=== PATIENT | male | born 1950 | race Two or more races ===

== ENCOUNTER 2023-11-13 06:57 | Inpatient (IN) | payer OTHER ==
[~2023-11-13] VITALS: Ht 172.7 cm; Wt 106.3 kg
[~2023-11-13 06:57] MED LIST: METO1TAB77 PO
[2023-11-13] MEDS: VANCOMYCIN HCL 1000 MG VL ONE ×2 (07:11→08:39)
[2023-11-13] MEDS: BUPIVACAINE 0.25% INJ 50ML VIAL ONE (07:12)
[2023-11-13] MEDS: TRANEXAMIC ACID 20 ML ONE (07:12)
[2023-11-13] MEDS ORDERED: LIDOCAINE 1% INJ PF 5ML AMP ONE (07:16)
[2023-11-13] MEDS ORDERED: DexAMETHasone SOD PHOS 10MG/1ML VIAL INJ ONE (07:16)
[2023-11-13] MEDS ORDERED: KETOROLAC TROMETH 30 MG/ML 1ML VIAL ONE (07:16)
[2023-11-13] MEDS ORDERED: MORPHINE SULF PF 5 MG/10 ML VIAL ONE (07:16)
[2023-11-13] MEDS ORDERED: ONDANSETRON HCL 4 MG/2 ML VIAL ONE (07:16)
[2023-11-13] MEDS ORDERED: KETAMINE 50mg/ML 1ml syringe ONE (07:17)
[2023-11-13] MEDS ORDERED: EPINEPHrine HCL 1 MG/1 ML AMP ONE (07:17)
[2023-11-13] MEDS ORDERED: PROPOFOL 10 MG/ML 20 ML IV ONE ×2 (07:17→09:18)
[2023-11-13] MEDS ORDERED: GLYCOPYRROLATE 0.2 MG/ML 1ML VIAL ONE (07:17)
[2023-11-13] MEDS: ceFAZolin 2 GM/D5W50ml 50 ML IV ONE ×2 (07:20→07:50)
[2023-11-13] MEDS: CEFEPIME 1GM/ 50ML 50 ML IV ONE (07:30)
[2023-11-13] MEDS: CELECOXIB 100 MG CAP PO ONE (07:30)
[2023-11-13] MEDS: GABAPENTIN 300 MG CAP PO ONE (07:30)
[2023-11-13] MEDS: ACETAMINOPHEN IV 1000 MG/100ML (10MG/ML) IV ONE (07:30)
[2023-11-13] MEDS ORDERED: SODIUM CHLORIDE LOCK 10 ML ONE (08:27)
[2023-11-13] MEDS: MORPHINE SULF PF 5 MG/10 ML VIAL IV ONE (08:49)
[2023-11-13] MEDS: KETOROLAC TROMETH 30 MG/ML 1ML VIAL ONE (08:49)
[2023-11-13] MEDS ORDERED: ePHEDrine SULFATE 50 MG/ML AMP ONE (09:17)
[2023-11-13] MEDS ORDERED: ONDANSETRON HCL 4 MG/2 ML VIAL IV PRN ×2 (09:45→10:15)
[2023-11-13] MEDS ORDERED: NITROGLYCERIN 0.4 MG SL TAB SL PRN (09:45)
[2023-11-13] MEDS ORDERED: MORPHINE SULFATE INJ 2 MG/ml SYRG IV PRN (09:45)
[2023-11-13 09:57] VITALS: PULSE 77; RESP 17; O2SAT 99
[2023-11-13] MEDS ORDERED: CEFEPIME 1GM/ 50ML 50 ML IV SCH (10:00)
[2023-11-13] MEDS: METOPROLOL TARTRATE 50 MG TAB PO SCH (10:00)
[2023-11-13] MEDS: oxyCODONE ER 10 MG TAB PO SCH (10:00)
[2023-11-13] MEDS ORDERED: LABETALOL HCL 5 MG/ML 4ML SYRINGE IV PRN (10:15)
[2023-11-13] MEDS ORDERED: HYDROmorphone HCL 2 MG/ML VL/or syr IV PRN (10:15)
[2023-11-13] MEDS ORDERED: oxyCODONE HCL 5MG TAB PO PRN (10:15)
[2023-11-13] MEDS ORDERED: ePHEDrine SULFATE 50 MG/ML AMP IV PRN (10:15)
[2023-11-13] MEDS ORDERED: FLUMAZENIL 0.1 MG/ML INJ 10ML MDV IV PRN (10:15)
[2023-11-13] MEDS ORDERED: NALOXONE HCL 0.4 MG/ML VIAL IV PRN (10:15)
[2023-11-13] MEDS ORDERED: fentaNYL CITRATE 100 MCG/2 ML VL IV PRN (10:15)
[2023-11-13] MEDS ORDERED: hydrALAZINE HCL 20 MG/ML VL IV PRN (10:15)
[2023-11-13 14:15] VITALS: BP 145/78; PULSE 94; RESP 20; TEMP 98.2; O2SAT 96
[2023-11-13] MEDS: ENOXAPARIN SOD 40 MG/0.4 ML SYRINGE SC SCH (15:14)
[2023-11-13] MEDS: DOCUSATE SOD 100 MG CAP PO SCH (15:14)
[2023-11-13] MEDS: ceFAZolin 1GM/50ML 50 ML IV SCH ×2 (15:15→21:17)
[2023-11-13] MEDS: LACTATED RINGER'S 1,000 ML IV SCH (15:32)
[2023-11-13 16:54] VITALS: BP 141/76; PULSE 96; RESP 20; TEMP 98.2; O2SAT 96
[2023-11-13 20:00] VITALS: PULSE 89; PULSE 93; RESP 19; O2SAT 96
[2023-11-13] MEDS: HYDROmorphone HCL 2 MG/ML VL/or syr IV PRN (20:32)
[2023-11-13 21:00] VITALS: BP 144/70; PULSE 93; RESP 19; TEMP 97; O2SAT 96
[2023-11-14] VITALS (8 sets, daily range): BP systolic 103–154; BP diastolic 56–78; PULSE 62–81; RESP 15–20; TEMP 97.4–98.4; O2SAT 85–97
[2023-11-14 07:13] LABS: Hematocrit 43.6 % (41.0-53.0); Hemoglobin 15.3 g/dL (13.5-17.5)
[2023-11-14 07:27] LABS: Alanine Aminotransferase 22 U/L (7-40); Alkaline Phosphatase 77 U/L (46-116); Anion Gap 8 (5-15); BUN/Creatinine Ratio 18.1 (10.0-20.0); Blood Urea Nitrogen 17 mg/dL (9-23); Calcium 9.3 mg/dL (8.5-10.1); Carbon Dioxide 23 mmol/L (20-30); Chloride 105 mmol/L (98-107); Glucose 131 mg/dL (74-106); Potassium 4.2 mmol/L (3.5-5.1); Sodium 136 mmol/L (136-145)
[2023-11-14 07:28] LABS: Albumin 3.6 g/dL (3.2-4.8)
[2023-11-14 07:29] LABS: Aspartate Aminotransferase 20 U/L (13-40); Bilirubin, Total 0.5 mg/dL (0.2-1.0)
[2023-11-14] MEDS: CEFEPIME 1GM/ 50ML 50 ML IV SCH (08:52)
[2023-11-14] MEDS: OXYCODONE W/ ACETAMINOPHEN 5/325MG TABLET PO PRN (17:08)
[2023-11-15 01:00] VITALS: BP 104/62; PULSE 68; RESP 16; TEMP 97.5; O2SAT 92
[2023-11-15 05:00] VITALS: BP 129/62; PULSE 84; RESP 16; TEMP 97.6; O2SAT 94
[2023-11-15 08:00] VITALS: PULSE 83
[2023-11-15 08:18] VITALS: BP 138/82; PULSE 82; RESP 16; TEMP 98.5; O2SAT 93
[2023-11-15 13:00] VITALS: BP 152/87; PULSE 70; RESP 16; TEMP 98.5; O2SAT 96
== END 2023-11-15 13:55 | disposition home health service (06) | DRG 470 ==
LOC: SUR 06:57 → TELE 09:48 → TELE-WESTW 14:51
PROVIDERS: ADMIT Orthopaedic Surgery Adult Reconstructive Orthopaedic Surgery; ATTEND Orthopaedic Surgery
PROC: 8E0YXBZ Computer Assisted Procedure of Lower Extremity (ICD-10-PCS; 2023-11-13)
PROC: 0SRC0N9 Replacement of Right Knee Joint with Patellofemoral Synthetic Substitute, Cemented, Open Approach (ICD-10-PCS; principal; 2023-11-13 08:11)
DX: M17.11 Unilateral primary osteoarthritis, right knee (principal); Z79.899 Other long term (current) drug therapy
CPT/HCPCS: 36415; 73562; 80053; 85014; 85018; 86850; 86900; 86901; 97110; 97116; 97163; 97530; G0378; J0131; J0171; J1100; J1885; J2405; J2704; J3490

== ENCOUNTER 2024-01-17 12:50 | Emergency (ER) | payer OTHER ==
[~2024-01-17] VITALS: Ht 172.7 cm; Wt 97.1 kg
[2024-01-17] MEDS: cefTRIAXone SOD 1,000 MG VL IM ONE (17:06)
[2024-01-17] MEDS: KETOROLAC TROMETH 60MG/2ML VIAL IM ONE (17:06)
[2024-01-17 17:14] VITALS: BP 145/82; PULSE 90; RESP 18; TEMP 98.4; O2SAT 96
[2024-01-17] MEDS ORDERED: AUG875T PO (17:15)
== END 2024-01-17 17:23 | disposition home or self-care (01) ==
LOC: ER 12:50
DX: R22.0 Localized swelling, mass and lump, head (principal); I10 Essential (primary) hypertension
CPT/HCPCS: 96372; 99284; J0696; J1885